=== PATIENT | female | born 1995 | race Two or more races ===

== ENCOUNTER → 2018-08-15 | Outpatient (CLI) | payer OTHER ==
[2018-08-15 20:24] LABS: HEMATOCRIT 36.5 % (36.0-47.0); HEMOGLOBIN 11.9 g/dl (12.0-15.5); MEAN CORPUSCULAR HEMOGLOBIN 30.4 pg (27.0-33.0); MEAN CORPUSCULAR HGB CONC 32.6 g/dl (32.0-36.5); MEAN CORPUSCULAR VOLUME 93.1 fl (80.0-96.0); PLATELET COUNT, AUTOMATED 246 10^3/uL (150-450); RED BLOOD COUNT 3.92 10^6/uL (4.00-5.40); WHITE BLOOD COUNT 10.2 10^3/uL (4.0-10.0)
[2018-08-17 11:58] LABS: HEPATITIS C VIRUS ABY INDEX 0.1 INDEX (<0.8)
== END ==
LOC: M LRY 15:27
PROVIDERS: ATTEND Advanced Practice Midwife
DX: Z34.83 Encounter for supervision of other normal pregnancy, third trimester (principal); Z36.89 Encounter for other specified antenatal screening

== ENCOUNTER → 2018-10-05 | Outpatient (REF) | payer OTHER ==
[~2018-10-05] MED LIST: ACET-683 PO; IBUP80TA PO; PRENTAB9 PO
== END ==
LOC: M LAB REF 16:48
PROVIDERS: ATTEND Advanced Practice Midwife
DX: Z34.03 Encounter for supervision of normal first pregnancy, third trimester (principal)

== ENCOUNTER → 2018-10-12 | Outpatient (CLI) | payer OTHER | LOC: M LRY 13:32 | PROVIDERS: ATTEND Advanced Practice Midwife | DX: Z34.03 Encounter for supervision of normal first pregnancy, third trimester (principal); Z36.89 Encounter for other specified antenatal screening ==

== ENCOUNTER → 2018-10-17 | Outpatient (REF) | payer OTHER ==
[2018-10-17 21:19] LABS: CHLAMYDIA DNA AMPLIFICATION NEGATIVE (NEGATIVE); GC DNA AMPLIFICATION NEGATIVE (NEGATIVE)
== END ==
LOC: M LAB REF 17:10
PROVIDERS: ATTEND Obstetrics & Gynecology
DX: Z34.03 Encounter for supervision of normal first pregnancy, third trimester (principal)

== ENCOUNTER 2018-10-31 07:37 | Inpatient (IN) | payer OTHER ==
[2018-10-31] VITALS (34 sets, daily range): BP systolic 98–186; BP diastolic 50–93
[~2018-10-31] VITALS: Ht 165.1 cm; Wt 59.1 kg
[~2018-10-31 07:37] MED LIST changes: -ACET-683 PO; -IBUP80TA PO; -PRENTAB9 PO; +miSOPROStol 50 MCG 1/2 TAB (S0191) PO SCH
[2018-10-31] MEDS ORDERED: PRENTAB9 PO (07:53)
[2018-10-31] MEDS ORDERED: LACTATED RINGER'S 1000 ML IV STA (08:34)
[2018-10-31] MEDS ORDERED: PENICILLIN G POTASSIUM IV 5 MU in D5W MINI-BAG PLUS 100 ML IV STA ×2 (08:34→16:22)
[2018-10-31 09:00] LABS: HEMATOCRIT 39.4 % (36.0-47.0); HEMOGLOBIN 13.1 g/dl (12.0-15.5); MEAN CORPUSCULAR HEMOGLOBIN 30.1 pg (27.0-33.0); MEAN CORPUSCULAR HGB CONC 33.2 g/dl (32.0-36.5); MEAN CORPUSCULAR VOLUME 90.6 fl (80.0-96.0); PLATELET COUNT, AUTOMATED 195 10^3/uL (150-450); RED BLOOD COUNT 4.35 10^6/uL (4.00-5.40); WHITE BLOOD COUNT 7.4 10^3/uL (4.0-10.0)
[2018-10-31] MEDS ORDERED: **PENDING PCN ENTRY XX SCH (09:00)
--- NOTE | 2018-10-31 09:12 | HPE ---
DATE OF ADMISSION: 10/31/2018 Rossy is a 22-year-old, 1, para 0, at 40 weeks gestation, EDC of 10/31/2018 based on first trimester ultrasound present to labor and delivery today for induction of labor due to term . She denies any regular painful contractions, vaginal bleeding, and leakage of fluid. The fetus has been active. care was initiated in [place] in the first trimester with a transfer of care to [facility] at 29 weeks gestation. course was complicated by a positive Chlamydia first trimester with a test cure 10/17/2018 negative Chlamydia in third trimester transfer of care. OBSTETRIC HISTORY: Primigravida. OBSTETRIC LABS: A positive. Antibody screen negative. Rubella immune. VDRL nonreactive. Hepatitis B surface antigen negative. HIV negative. Hepatitis C antibody nonreactive. Gonorrhea negative. Chlamydia positive with test to cure 10/17/2018 negative. She did have genetic exam screen labs performed. Gestational diabetic screening normal at 69. Group B streptococcus (GBS) is positive. Repeat HIV 36 weeks gestation negative. Hepatitis C antibiotic nonreactive. PAST MEDICAL HISTORY: History of migraines, anxiety. SURGERIES: None. FAMILY HISTORY: Pulmonary embolism, hypertension, hypothyroid, hyperlipidemia, arthritis, diabetes, stroke, migraines, asthma, breast and ovarian cancer. SOCIAL HISTORY: The patient is . Her and her mother are at bedside for support. She is a nonsmoker. Denies alcohol use. She does report a history of marijuana use until she found out she was . Denies any usage throughout her . She denies any history of abuse physical, sexual, or emotional. Positive Chlamydia history. ALLERGIES: No known drug allergies. [place]. CURRENT MEDICATIONS: - vitamin - folic acid OBJECTIVE: Temperature 98.4, pulse 102, respirations 18, blood pressure 98/62. She is alert and oriented times three. heart rate is 130 with moderate variability, positive accelerations, no decelerations were observed. Contractions are every 4-6 minutes, they palpate mild. Abdomen: Gravid. Cephalic presentation. Estimated weight 6-1/2 pounds. Sterile vaginal exam: 1 cm dilated, 50% effaced, -3 station, posterior moderate scant blood show with exam. ASSESSMENT: Intrauterine at 40 weeks. heart rate category 1 term . PLAN: Admit patient to labor and delivery. Out of bed ad yoselyn. Regular diet. Routine labs. IV fluid bolus at this time 500 mL then saline lock. We will start IV antibiotics for Group B streptococcus (GBS) prophylaxis once she is in active labor. I did review the risks, benefits, and alternatives to the induction of labor. The patient and her family's questions have been answered. They desire to proceed with induction today. She does plan on an epidural for her labor coping when she is uncomfortable. Start misoprostol 50 mcg by mouth every 4 hours for cervical ripening. I do anticipate cervical ripening. She has been verbally consented for blood products and emergency surgery if necessary.
[2018-10-31] MEDS ORDERED: PENICILLIN G POTASSIUM IV 2.5 MU in APPROPRIATE DILUENT 1 EA IV SCH ×2 (12:45→20:30)
[2018-10-31] MEDS ORDERED: LR 1,000 ML IV SCH (13:14)
[2018-10-31] MEDS ORDERED: OXYTOCIN DRIP 30 UNITS in APPROPRIATE DILUENT 1 EA IV SCH ×2 (13:15→18:35)
[2018-10-31] MEDS ORDERED: PROMETHAZINE INJ 25 MG/ML VIAL (J2550) IV ONE (13:15)
[2018-10-31] MEDS ORDERED: BUTORPHANOL 2 MG/ML INJ (J0595) IV ONE (13:15)
[2018-10-31] MEDS ORDERED: PENICILLIN G POTASSIUM 5 MU VIAL As Ordered ONE (16:21)
[2018-10-31] MEDS ORDERED: FENTANYL 2MCG/ML ROPIVACAINE 0.2% IN 0.9% NACL 100ML IVBAG As Ordered ONE (16:43)
[2018-10-31] MEDS ORDERED: LACTATED RINGER'S 1000 ML IV PRN (18:15)
[2018-10-31] MEDS ORDERED: NALOXONE INJ 0.4 MG/1 ML VIAL (J2310) IV PRN (18:15)
[2018-10-31] MEDS ORDERED: REFRIGERATOR IV KEYS XX PRN (18:15)
[2018-10-31] MEDS ORDERED: ePHEDrine SULFATE 25 MG/5 ML(5MG/ML) SYRINGE IV PRN (18:15)
[2018-10-31] MEDS ORDERED: EPIDURAL COMMENT XX SCH (18:15)
[2018-10-31] MEDS ORDERED: FENTANYL/ROPIVACAINE/NACL BAG 100 ML EPIDURAL SCH (18:15)
[2018-10-31] MEDS ORDERED: ONDANSETRON 4MG/2ML VIAL (J2405) IV PRN (18:15)
[2018-10-31] MEDS ORDERED: diphenhydrAMINE INJ 50MG/ML VIAL (J1200) IV PRN (18:15)
[2018-10-31] MEDS ORDERED: EPIDURAL/PCA KEYS XX PRN (18:15)
--- NOTE | 2018-10-31 18:44 | DN ---
DATE: 10/31/2018 Rossy is a 22-year-old 1, para 1-0-0-1 who was admitted to labor and delivery for induction of labor. One dose of misoprostol was administered, and labor did ensue. We did augment her labor with intravenous (IV) Pitocin. She utilized IV pain medications and had an epidural to cope with her labor. She had spontaneous rupture of membranes with clear fluid at 1751. She was fully dilated and 1757. She pushed to a normal spontaneous vaginal delivery of a live male infant in occiput anterior (OA) position with restitution to right occiput transverse (ROT) position at 1809. There was no nuchal cord. The shoulders delivered spontaneously, and the corpus immediately followed. The male was placed on the maternal abdomen crying and active. Mouth and nares were bulb suctioned. The cord was clamped times two and cut by the father of the baby under my direction. Spontaneous expulsion of an intact placenta with 3-vessel cord was at 1813. Trailing membranes were teased out with ring forceps. Uterine hemostasis achieved with IV Pitocin rapid infusion and uterine fundal massage. Estimated blood loss 350 mL. Perineum and vagina inspected and noted to have a left labial laceration as well as a first-degree midline laceration. Lacerations were repaired with 3-0 Rapide in the usual fashion. male weighed 6 pounds 15 ounces, 3140 grams, scores 8 and 9. Mom is going to breastfeed her son, and the family have named him Etienne Morrow Jr. At the close of delivery, lap counts, needle counts, and instrument counts were correct and verified.
[2018-10-31] MEDS ORDERED: METHYLERGONOVINE MALEATE 0.2 MG TAB PO PRN (18:45)
[2018-10-31] MEDS ORDERED: ACETAMINOPHEN TAB 650MG DOSE (2X325MG) PO PRN (18:45)
[2018-10-31] MEDS ORDERED: RHOGAM 300 MCG (1500 IU) INJ (J2790) IM SCH (18:45)
[2018-10-31] MEDS ORDERED: DIBUCAINE 1% OINTMENT 30GM TOP PRN (18:45)
[2018-10-31] MEDS ORDERED: IBUPROFEN 600 MG TAB PO PRN (18:45)
[2018-10-31] MEDS ORDERED: MEASLES,MUMPS,RUBELLA VACCINE INJ (MMR-II) (90707) SC SCH (18:45)
[2018-10-31 19:07] LABS: AMPHETAMINES URINE REFLEX NEGATIVE (NEGATIVE); BARBITURATES URINE REFLEX NEGATIVE (NEGATIVE); BENZODIAZEPINES URINE REFLEX NEGATIVE (NEGATIVE); CANNABINOIDS URINE REFLEX NEGATIVE (NEGATIVE); COCAINE METABOLITE URINE REFLE NEGATIVE (NEGATIVE); METHADONE URINE REFLEX NEGATIVE (NEGATIVE); OPIATES URINE REFLEX NEGATIVE (NEGATIVE); PHENCYCLIDINE URINE REFLEX NEGATIVE (NEGATIVE)
[2018-10-31] MEDS: DOCUSATE SODIUM 100 MG CAP PO PRN (20:52)
[2018-10-31] MEDS: IBUPROFEN 800 MG TAB PO PRN (20:52)
[2018-10-31] MEDS: ACETAMINOPHEN 500 MG TAB PO PRN (23:29)
[2018-11-01] MEDS: IBUPROFEN 800 MG TAB PO PRN ×2 (05:32→19:55)
[2018-11-01 06:07] VITALS: BP 112/71
[2018-11-01] MEDS: PRENATAL VITAMINS CHEWABLE TABLET PO SCH (09:53)
[2018-11-01] MEDS: ACETAMINOPHEN 500 MG TAB PO PRN (09:53)
[2018-11-01 17:52] VITALS: BP 109/58
[2018-11-01] MEDS: DOCUSATE SODIUM 100 MG CAP PO PRN (19:55)
[2018-11-02 06:03] VITALS: BP 119/56
[2018-11-02] MEDS ORDERED: ACET-683 PO (06:25)
[2018-11-02] MEDS ORDERED: IBUP80TA PO (06:25)
[2018-11-02] MEDS: PRENATAL VITAMINS CHEWABLE TABLET PO SCH (08:19)
== END 2018-11-02 18:00 | disposition home or self-care (01) | DRG 807 ==
LOC: M LDI 07:37 → M OBS 20:22
PROVIDERS: ADMIT Advanced Practice Midwife; ATTEND Advanced Practice Midwife
PROC: 10E0XZZ Delivery of Products of Conception, External Approach (ICD-10-PCS; principal; 2018-10-31)
PROC: 0HQ9XZZ Repair Perineum Skin, External Approach (ICD-10-PCS; 2018-10-31)
PROC: 3E0DXGC Introduction of Other Therapeutic Substance into Mouth and Pharynx, External Approach (ICD-10-PCS; 2018-10-31)
DX: O48.0 Post-term pregnancy (principal); Z37.0 Single live birth; Z3A.40 40 weeks gestation of pregnancy; O70.0 First degree perineal laceration during delivery

== ENCOUNTER → 2018-12-26 | Outpatient (REF) | payer OTHER ==
[~2018-12-26] MED LIST changes: +ACET-683 PO; +IBUP80TA PO; +PRENTAB9 PO; -miSOPROStol 50 MCG 1/2 TAB (S0191) PO SCH
== END ==
LOC: M SFHCLERA 19:41
PROVIDERS: ATTEND Physician Assistant
DX: R35.0 Frequency of micturition (principal)
CPT/HCPCS: 81002; 81025; 87086; G0463

== ENCOUNTER → 2020-04-07 | Outpatient (CLI) | payer OTHER | LOC: M LABSMTC 11:55 | PROVIDERS: ATTEND Family Medicine | DX: Z11.52 Encounter for screening for COVID-19 (principal) | CPT/HCPCS: C9803; U0003 ==

== ENCOUNTER 2021-03-06 14:54 | Emergency (ER) | payer OTHER ==
[~2021-03-06] VITALS: Ht 167.6 cm; Wt 50.0 kg
[2021-03-06] MEDS ORDERED: KETOROLAC 30 MG/ML 1ML VIAL IV ONE (15:30)
[2021-03-06] MEDS ORDERED: ONDANSETRON 4MG/2ML VIAL IV ONE (15:30)
[2021-03-06] MEDS ORDERED: NS 1,000 ML IV ONE (15:30)
[2021-03-06 16:18] LABS: BASO % 0.3 % (0.0-1.0); EOS % 0.1 % (0.0-3.0); HEMATOCRIT 39.1 % (36.0-47.0); HEMOGLOBIN 12.9 g/dl (12.0-15.5); LYMPH # 1.3 10^3/uL (1.5-5.0); LYMPH % 10.6 % (24.0-44.0); MEAN CORPUSCULAR HEMOGLOBIN 29.7 pg (27.0-33.0); MEAN CORPUSCULAR VOLUME 89.9 fl (80.0-96.0); MONO # 1.3 10^3/uL (0.0-0.8); MONO % 10.5 % (2.0-8.0); NEUTROPHILS # 9.4 10^3/uL (1.5-8.5); NEUTROPHILS % 78.3 % (36.0-66.0); PLATELET COUNT, AUTOMATED 271 10^3/uL (150-450); RED BLOOD COUNT 4.35 10^6/uL (4.00-5.40)
[2021-03-06 16:42] LABS: ALBUMIN 3.4 GM/DL (3.2-5.2); ALT/SGPT 26 U/L (12-78); AMYLASE 32 U/L (25-115); BILIRUBIN,DIRECT < 0.1 MG/DL (0.0-0.2); BILIRUBIN,TOTAL 0.2 MG/DL (0.2-1.0); BLOOD UREA NITROGEN 8 MG/DL (7-18); CALCIUM LEVEL 8.9 MG/DL (8.5-10.1); CARBON DIOXIDE LEVEL 26 MEQ/L (21-32); CHLORIDE LEVEL 105 MEQ/L (98-107); CREATININE FOR GFR 0.68 MG/DL (0.55-1.30); GLOMERULAR FILTRATION RATE > 60.0 (>60); GLUCOSE, FASTING 95 MG/DL (70-100); LIPASE 41 U/L (73-393); POTASSIUM SERUM 3.7 MEQ/L (3.5-5.1); SODIUM LEVEL 137 MEQ/L (136-145)
[2021-03-06 16:46] LABS: HCG, SERUM QUALITATIVE NEGATIVE (NEGATIVE)
[2021-03-06] MEDS ORDERED: ISOVUE-370 76% 100ML VIAL As Ordered ONE (17:11)
[2021-03-06] MEDS ORDERED: ONDA4TAB6 PO (19:22)
[2021-03-06 19:40] VITALS: BP 107/59
== END 2021-03-06 19:52 | disposition home or self-care (01) ==
LOC: M ED 14:54
DX: R11.2 Nausea with vomiting, unspecified (principal); R10.11 Right upper quadrant pain; Z91.018 Allergy to other foods
CPT/HCPCS: 74177; 80048; 80076; 81001; 82150; 83690; 84702; 84703; 85025; 87086; 93005; 96361; 96374; 96375; 99284; J1885; J2405; Q9967